=== PATIENT | male | born 1990 | race Caucasian/White ===

== ENCOUNTER 2023-01-06 23:53 | Emergency (ER) | payer MEDICAID ==
[~2023-01-06] VITALS: Ht 175.3 cm; Wt 80.7 kg
[2023-01-07 00:04] VITALS: O2SAT 99
[2023-01-07] MEDS ORDERED: ACETAMINOPHEN 325MG TABLET PO ONE (01:45)
[2023-01-07] MEDS ORDERED: ACET-2708 MT (02:54)
[2023-01-07 05:26] VITALS: BP 137/70; PULSE 90; RESP 16; TEMP 98.6
== END 2023-01-07 05:27 | disposition home or self-care (01) ==
LOC: EDBD 23:53 → ER 23:53
DX: S09.90XA Unspecified injury of head, initial encounter (principal); S43.401A Unspecified sprain of right shoulder joint, initial encounter; V29.99XA Rider (driver) (passenger) of other motorcycle injured in unspecified traffic accident, initial encounter; Y93.89 Activity, other specified; Y92.89 Other specified places as the place of occurrence of the external cause; Y99.8 Other external cause status
CPT/HCPCS: 99284; 71045; 73030; 70450; Z7610